=== PATIENT | male | born 1940 ===

== ENCOUNTER 2020-10-20 21:41 | Emergency (ER) | payer OTHER ==
[~2020-10-20] VITALS: Ht 167.6 cm; Wt 81.6 kg
[~2020-10-20 21:41] MED LIST: DIOVAN HCT 160-1 TAB PO; FORTAMET1000 MG/BO PO; IOPHEN DM-100 MG/5 M PO; LEVAQUIN750 MG PO; NAMENDA5 MG PO
[2020-10-20] MEDS ORDERED: BRILINTA60 MG PO (21:58)
[2020-10-20] MEDS ORDERED: GLIMEPIRIDE1 M1 PO (21:58)
[2020-10-20] MEDS ORDERED: TOPROL XL25 M1 PO (21:59)
[2020-10-20] MEDS ORDERED: ATORVASTATIN CA10 MG PO (21:59)
[2020-10-20] MEDS ORDERED: CHILDREN'S ASPI81 MG PO (21:59)
[2020-10-20] MEDS ORDERED: COZAAR25 MG PO (21:59)
[2020-10-20] MEDS ORDERED: TAMS0.4C PO (22:00)
== END 2020-10-21 17:17 | disposition home or self-care (01) ==
LOC: ER 21:41 → CPU-OBS 22:39 → ER 10-21 01:51
DX: I47.1 Supraventricular tachycardia (principal); R31.9 Hematuria, unspecified; R06.02 Shortness of breath; R53.83 Other fatigue; I10 Essential (primary) hypertension; Z03.818 Encounter for observation for suspected exposure to other biological agents ruled out